=== PATIENT | female | born 1990 | race Caucasian/White ===

== ENCOUNTER 2020-10-08 18:26 | Emergency (ER) | payer OTHER ==
[2020-10-08 18:42] VITALS: BP 129/70; PULSE 91; TEMP 98.1
[2020-10-08] MEDS ORDERED: SODIUM CHLORIDE 0.9% 500 ML INFUS.BAG IV ONE (19:03)
[2020-10-08] MEDS ORDERED: ACETAMINOPHEN 500 MG TABLET (FP) PO ONE (20:09)
[2020-10-08] MEDS ORDERED: ACETAMINOPHEN 325 MG TABLET (FP) ONE (20:33)
[2020-10-08 20:51] LABS: BASO % 0.4 % (0-2.0); EOS % 0.7 % (0-4.5); HEMATOCRIT 36.2 % (32.4-45.2); HEMOGLOBIN 12.1 GM/dL (10.7-15.3); LYMPH % 32.5 % (8-40); MCH 28.9 pg (25.7-33.7); MCHC 33.5 g/dl (32.0-36.0); MEAN CELL VOLUME 86.4 fl (80-96); MEAN PLT VOLUME 8.1 fl (7.5-11.1); MONO % 9.1 % (3.8-10.2); NEUT % 57.3 % (42.8-82.8); PLATELET COUNT 237 K/MM3 (134-434); RBC 4.19 M/mm3 (3.60-5.2); RDW 13.7 % (11.6-15.6); WHITE BLOOD COUNT 6.7 K/mm3 (4.0-10.0)
[2020-10-08 20:55] LABS: EPI CELLS 15 /uL (0-25.1); HYALINE CASTS 0 /uL (0-3.1); PH,URINE 6.5 (5.0-8.0); URINE APPEARANCE CLEAR; URINE BACTERIA 530 /uL (0-1359); URINE BILIRUBIN NEGATIVE (NEGATIVE); URINE COLOR YELLOW; URINE GLUCOSE (UA) NEGATIVE (NEGATIVE); URINE KETONE NEGATIVE (NEGATIVE); URINE LEUK ESTERASE TRACE (NEGATIVE); URINE NITRITE NEGATIVE (NEGATIVE); URINE PROTEIN NEGATIVE (NEGATIVE); URINE RBC 5 /uL (0-23.9); URINE UROBILINOGEN 0.2 mg/dL (0.2-1.0); URINE WBC 16 /uL (0-25.8)
[2020-10-08 20:56] LABS: HCG,QUALITATIVE URINE Negative
[2020-10-08 21:14] LABS: CALCIUM 9.6 mg/dL (8.5-10.1)
[2020-10-08 21:15] LABS: ALBUMIN 4.2 g/dl (3.4-5.0); BLOOD UREA NITROGEN 13.2 mg/dL (7-18)
[2020-10-08 21:18] LABS: CREATININE 0.8 mg/dL (0.55-1.3)
[2020-10-08 21:19] LABS: BILIRUBIN,TOTAL 0.4 mg/dL (0.2-1)
[2020-10-08 21:20] LABS: TOT PROT 7.6 g/dl (6.4-8.2)
== END 2020-10-08 21:47 | disposition home or self-care (01) ==
LOC: JER 18:26
DX: R53.1 Weakness (principal)
CPT/HCPCS: 36415; 71046-TC-FY; 80053; 81003; 84703; 85025; 87086; 93005; 93010; 99285-25